=== PATIENT | female | born 1950 | race Caucasian/White ===

== ENCOUNTER → 2017-05-01 12:36 | Outpatient (CLI) | payer BC, SELFPAY ==
[2017-05-01 12:57] LABS: Blood Urea Nitrogen 20 mg/dL (7-18); Creatinine,Serum 0.86 mg/dL (0.55-1.02); Estimated Glomerular Filt Rate 66 ml/min (>60); GFR (African American) 80 ML/MIN (>60)
--- NOTE | 2017-05-01 13:00 | CT_ITS ---
CT chest wo/w con HISTORY: Pulmonary nodules follow-up abnormal CT ITS.REASON: PULMONARY NODULE ORDERING PHYSICIAN: Raimundo Robertson MD PATIENT AGE: 66 years TECHNIQUE: Axial images obtained without and with contrast. Sagittal and coronal reformatted images are also generated and reviewed. CONTRAST: 75ml Isovue 370 I.V. COMPARISON: None FINDINGS: There are coronary artery calcifications. A 12 mm isodense nodule present within the right lobe of the thyroid gland unchanged. No mediastinal or hilar mass is evident. There are scattered calcified granulomas. The previously noted subpleural opacity in the right lung base posterior laterally is unchanged measuring 6 mm. No abnormal enhancement. No new nodules are evident. No effusions or infiltrates. There is a small hiatal hernia. Mild cardiomegaly. No obvious pericardial effusion. Upper abdominal images show multiple hepatic cysts as before degenerative changes are present in the thoracic spine. IMPRESSION: 1. Overall stable CT appearance of the chest without and with contrast. Stable 6 mm subpleural nodule right lower lobe. Consider one-year follow-up to confirm 18 month stability. 2. Coronary artery disease. 3. No change thyroid nodule
--- NOTE | 2017-05-01 13:28 | HMH.ITSHM ---
VIT D,LISINOPRIL OMEPRAZOLE,HYDROCODONE
== END ==
PROVIDERS: PCP Family Medicine; Visit Provider Internal Medicine
DX: R91.8 Other nonspecific abnormal finding of lung field (principal)
CPT/HCPCS: 36415; 71270; 82565; 84520; Q9967

== ENCOUNTER → 2017-12-26 14:08 | Outpatient (CLI) | payer MEDICARE, OTHER, SELFPAY ==
--- NOTE | 2017-12-26 14:13 | CA_ITS ---
PROCEDURE: 2-D M-mode and color Doppler study INDICATIONS FOR THE TEST: Chest pain COPD Heart Murmur Tobacco Smoking Palpitations Fatigue Syncope Edema HypertensionXDiabetes Mellitus Rheumatic Fever SOB DOCKERY Obesity HyperlipidemiaX Family History HDX Additional History MVP PATIENT INFORMATION HEIGHT: 62 WEIGHT:205 GENDER: Female B/P:151/90 2-D/M-MODE INTERPRETATION: 2-D MEASUREMENTS OBSERVED VALUES IN CMS Right Ventricular Dimension (RVDd) 2.6 Interventricular Septum (Thickness)(IVsd) .9 Left Ventricular Internal Dimensions(LVIDd) 5.5 Left Ventricular Posterior Wall (Thickness)(LVPWd) .9 Aortic Root 3.1 Aortic Cusp Separation 2.0 Left Atrial Dimensions (LAD) 3.7 2D 1. Left atrium is normal size, left ventricle is normal size, left ventricle wall thickness is upper limit of the normal, there is preserved left ventricular systolic function, visually estimated ejection fraction of 55% with no regional wall motion abnormality. 2. The right atrium and right ventricle are normal size and contractility. 3. The aortic, mitral and tricuspid valve are grossly normal. 4. The pulmonic valve is poorly visualized. 5. No significant pericardial effusion noted. DOPPLER INTERROGATION: Doppler interrogation of the aortic, mitral and tricuspid valvular presence of mild mitral and tricuspid regurgitation, tricuspid regurgitation jet velocity is inadequate for calculation of the right ventricular systolic pressure, diastolic parameters are inconclusive. CONCLUSION: 1. Normal left ventricular size, preserved left ventricular systolic function, visually estimated ejection fraction 55% with no regional wall motion abnormality, diastolic parameters are inconclusive. 2. Mild mitral and tricuspid regurgitation 3. No significant pericardial effusion noted.
== END ==
PROVIDERS: PCP Family Medicine; Visit Provider Internal Medicine
DX: I34.1 Nonrheumatic mitral (valve) prolapse (principal); I25.10 Atherosclerotic heart disease of native coronary artery without angina pectoris
CPT/HCPCS: 93306

== ENCOUNTER → 2019-01-01 10:19 | Outpatient (CLI) | payer MEDICARE, OTHER, SELFPAY ==
--- NOTE | 2019-01-01 | CA_ITS ---
APPROVED REPORT Exam: Exercise Treadmill Technologist: Lucy Desir, Ht: 5 ft 2 in Wt: 197 lbs BSA: 1.90 m2 HR: 64 bpm BP: 136/74 mmHg Rhythm: NSR,NSST ABNORMALITIES INFERIORLY Medical History Medical History: HTN Medications: Omeprazole,,,,, Losartan,,,,, Vit D,,,,, [place],,,,, Cardiac Risk Factors: HTN, FHX of CAD Stress Test Details Test: Tai HR Resting HR: 75 bpm Max Heart Rate (APMHR): 154 bpm Max HR Achieved: 158 bpm Target HR (85% APMHR): 130 bpm % of APMHR: 102 Recovery HR: 106 bpm BP Resting BP: 136.0/74.0 mmHg Max BP: 182.0/82.0 mmHg Recovery BP: 157.0/84.0 mmHg ECG Clinical Reason for Termination: Dyspnea Exercise duration: 06:08 min Highest Stage Achieved: Exercise capacity: 7.0 METs Stress ECG Conclusion EXERCISED ONBRUCE PROTOCOL FOR 6:00 WITH A MAX HEART RATE 155 BPM WHICH IS 118% OF PM FOR AGE. METS = 7.0. TEST STOPPED DUE TO DOCKERY. NO CHEST PAIN BUT DID HAVE SOA. NO ARRHYTHMIAS/ECTOPY. 1.0-1.5MM ST SEGMENT DEPRESSION INFERO-LATERALLY(BASELINE EKG ABNORMAL). ABNORMAL. NON-DIAGNOSTIC. Test Summary REST . . . . . . . Standing REST . . . . . . . Sitting REST 15:07 0.0 0.0 75 . 136/ 74 . . Stage 1 01:00 10.0 1.7 100 . . . . Stage 1 02:00 10.0 1.7 117 . . . . Stage 1 03:00 10.0 1.7 125 . 164/ 82 . . Stage 2 01:00 12.0 2.5 139 . . . . Stage 2 02:00 12.0 2.5 149 . . . . Stage 2 . . . . . . . Cardiolite injected Stage 2 03:00 12.0 2.5 154 . 182/ 82 . . Stage 3 00:08 14.0 3.4 155 . . . Stop exercise at 06:08 RECOVERY 01:00 0.0 0.0 138 . . . . RECOVERY 02:00 0.0 0.0 116 . 157/ 84 . . RECOVERY 03:00 0.0 0.0 98 . 157/ 84 . . RECOVERY 04:00 0.0 0.0 91 . 157/ 84 . . RECOVERY 05:00 0.0 0.0 84 . 157/ 84 . . RECOVERY 05:57 0.0 0.0 76 . 143/ 66 . . Electronically signed by : Kt Espinoza, 01/02/2019 11:51:19
--- NOTE | 2019-01-01 11:21 | NM_ITS ---
APPROVED REPORT Exam: Nuclear Stress Test Indication: chest pain Patient Location: Outpatient Stress Tech: Hattie Amadornkson MS Tech:HOLLY Rangel RT(R)(N) Ht: 5 ft 2 in Wt: 197 lbs Bra Size: 38 dd HR: 64 bpm BP: 136/74 mmHg BSA: 1.90 m2 BMI: 36.0 History: chest pain Procedure: Patient exercised on Tai protocol 6 minutes and sec, resting heart rate 64 bpm, resting blood pressure 136/74 mmHg, with exercise maximum heart rate achived was 154 bpm which is Greater than 85 % of the maximum predicted heart rate and blood pressure was 182/82 mmHg. Patient denied any complaint of chest pain. Patient has Adequate exercise capacity, achieved 7.0 METs of workload on treadmill, the blood pressure response to exercise was Adequate. Electrocardiogram Sinus rhythm with nonspecific ST-T changes, with exercise there is additional 1.[address] segment depression noted from the baseline EKG. The EKG portion of the exercise Myoview is nondiagnostic due to baseline abnormal EKG. Cardiac Stress and Resting SPECT Images: Cardiac Stress and Resting SPECT images were obtained using technetium 99m Myoview 30.6 mCi stress and 10.60 mCi at rest. Gated SPECT with analysis of segmental wall motion and calculation of the ejection fraction also done. Cardiac stress and resting SPECT images show uniform myocardial activity without segmental perfusion abnormality, computer derived ejection fraction is over 65% with no regional wall motion abnormality, right ventricle is normal size and contractility. Conclusion: 1. The EKG portion of the exercise Myoview is nondiagnostic due to baseline abnormal EKG, patient has adequate exercise capacity achieved 7 mets of workload on treadmill the blood pressure response to exercise was adequate, there was no exercise-induced chest discomfort. 2. No scintigraphic evidence of reversible ischemia seen at this level of exercise, computer derived ejection fraction is over 65% with no regional wall motion abnormality, right ventricle is normal size and contractility. Electronically signed by : Kt Espinoza, 01/02/2019 11:54:57
--- NOTE | 2019-01-01 13:57 | HMH.ITSHM ---
Current Home Medications as stated by this patient Joanna Downey or passenger relations representative. [] norco omprazole losartan vit d
== END ==
PROVIDERS: PCP Family Medicine; Visit Provider Urology
DX: I10 Essential (primary) hypertension (principal); I20.9 Angina pectoris, unspecified
CPT/HCPCS: 78452; 93017; A9502

== ENCOUNTER → 2019-12-31 15:42 | Outpatient (CLI) | payer MEDICARE, SELFPAY ==
[2020-01-01 16:06] LABS: Alanine Aminotransferase 18 U/L (12-78); Albumin Level 4.3 g/dl (3.5-5.0); Alkaline Phosphatase 102 U/L (38-126); Anion Gap 14.9 mEq/L (5-15); Aspartate Amino Transferase 28 U/L (14-36); Bilirubin,Direct 0.2 mg/dl (0.0-0.4); Bilirubin,Indirect 0.3 mg/dL (0.0-0.9); Bilirubin,Total 0.5 mg/dl (0.2-1.3); Bilirubin,Unconjugated 0.4 mg/dL (0.0-1.1); Blood Urea Nitrogen 19 mg/dl (7-17); Calcium 10.6 mg/dl (8.4-10.2); Carbon Dioxide 27 mmol/L (22.0-30.0); Chloride 105 mmol/L (98-107); Chol/HDL Ratio 3.8 (1-3.5); Cholesterol 218 mg/dl (140-200); Estimated Glomerular Filt Rate 72 ml/min (>60); GFR (African American) 87 ML/MIN (>60); Glucose 101 mg/dl (74-100); HDL Cholesterol 57 mg/dl (40-60); Potassium 4.9 mmoL/L (3.5-5.1); Sodium 142 mmol/L (136-145); Triglycerides 146 mg/dl (30-150); VLDL Cholesterol 29 mg/dL (0-40)
[2020-01-01 16:17] LABS: Direct LDL Cholesterol 119.83 mg/dL (100-129)
== END ==
PROVIDERS: Visit Provider Urology
DX: E78.5 Hyperlipidemia, unspecified (principal); I25.10 Atherosclerotic heart disease of native coronary artery without angina pectoris; I11.9 Hypertensive heart disease without heart failure
CPT/HCPCS: 80048; 80061; 80076

== ENCOUNTER → 2020-07-21 07:30 | Outpatient (CLI) | payer MEDICARE, SELFPAY ==
[2020-07-21 08:45] LABS: Alanine Aminotransferase 17 U/L (12-78); Albumin Level 4.2 g/dl (3.5-5.0); Alkaline Phosphatase 67 U/L (38-126); Aspartate Amino Transferase 28 U/L (14-36); Bilirubin,Direct 0.4 mg/dl (0.0-0.4); Bilirubin,Indirect 0.3 mg/dL (0.0-0.9); Bilirubin,Total 0.7 mg/dl (0.2-1.3); Bilirubin,Unconjugated 0.4 mg/dL (0.0-1.1); Chol/HDL Ratio 2.7 (1-3.5); Cholesterol 125 mg/dl (140-200); HDL Cholesterol 47 mg/dl (40-60); Total Protein,Serum 7.3 g/dl (6.3-8.2); Triglycerides 110 mg/dl (30-150); VLDL Cholesterol 22 mg/dL (0-40)
== END ==
PROVIDERS: Visit Provider Nurse Practitioner Family
DX: E78.5 Hyperlipidemia, unspecified (principal); I10 Essential (primary) hypertension; I25.10 Atherosclerotic heart disease of native coronary artery without angina pectoris
CPT/HCPCS: 36415; 80061; 80076

== ENCOUNTER → 2021-07-05 10:30 | Outpatient (CLI) | payer MEDICARE, SELFPAY ==
[2021-07-05 11:49] LABS: Basophils # 0.1 K/mm3 (0-0.2); Eosinophils # 0.3 K/mm3 (0.0-0.4); Eosinophils % 4.2 % (0.1-12.0); Hematocrit 39.5 % (37.0-47.0); Hemoglobin 13.3 g/dL (12.2-16.2); Lymphocytes # 2.3 K/mm3 (0.7-4.5); Mean Corpuscular HGB Conc 33.6 g/dL (31.8-35.4); Mean Corpuscular Hemoglobin 31.9 pg (27.0-31.2); Mean Corpuscular Volume 94.8 fl (81-99); Mean Platelet Volume 8.8 fl (7.4-10.4); Monocytes # 0.5 K/mm3 (0.1-1.0); Monocytes % 7.9 % (1.7-9.3); Neutrophils # 2.9 K/mm3 (1.8-7.8); Neutrophils % 47.8 % (37.0-80.0); Platelet Count 303 K/mm3 (142-424); Red Blood Count 4.16 M/mm3 (4.20-5.40); Red Cell Distribution Width 13.9 % (11.5-17.5); White Blood Count 6.1 K/mm3 (4.8-10.8)
[2021-07-05 11:56] LABS: Alanine Aminotransferase 18 U/L (12-78); Alkaline Phosphatase 80 U/L (38-126); Aspartate Amino Transferase 26 U/L (14-36); Bilirubin,Direct 0.1 mg/dl (0.0-0.4); Bilirubin,Indirect 0.5 mg/dL (0.0-0.9); Bilirubin,Total 0.6 mg/dl (0.2-1.3); Bilirubin,Unconjugated 0.5 mg/dL (0.0-1.1); Blood Urea Nitrogen 24 mg/dl (7-17); Calcium 9.9 mg/dl (8.4-10.2); Carbon Dioxide 25 mmol/L (22.0-30.0); Chloride 106 mmol/L (98-107); Chol/HDL Ratio 3.7 (1-3.5); Cholesterol 199 mg/dl (140-200); Estimated Glomerular Filt Rate 71 ml/min (>60); GFR (African American) 86 ML/MIN (>60); Glucose 97 mg/dl (74-100); HDL Cholesterol 54 mg/dl (40-60); Sodium 140 mmol/L (136-145); Triglycerides 98 mg/dl (30-150); VLDL Cholesterol 20 mg/dL (0-40)
[2021-07-05 12:04] LABS: Anion Gap 13.5 mEq/L (5-15); Potassium 4.5 mmoL/L (3.5-5.1)
== END ==
PROVIDERS: PCP Family Medicine; Visit Provider Nurse Practitioner
DX: E11.9 Type 2 diabetes mellitus without complications (principal); E78.2 Mixed hyperlipidemia; I25.10 Atherosclerotic heart disease of native coronary artery without angina pectoris; I11.9 Hypertensive heart disease without heart failure; I63.9 Cerebral infarction, unspecified
CPT/HCPCS: 36415; 80048; 80061; 80076; 85025

== ENCOUNTER → 2021-08-01 07:05 | Outpatient (CLI) | payer MEDICARE, SELFPAY | PROVIDERS: PCP Family Medicine; Visit Provider Family Medicine | DX: N39.0 Urinary tract infection, site not specified (principal); B96.89 Other specified bacterial agents as the cause of diseases classified elsewhere | CPT/HCPCS: 87086; 87088; 87186 ==

== ENCOUNTER → 2022-05-11 14:29 | Outpatient (CLI) | payer MEDICARE, SELFPAY ==
[2022-05-11 13:40] LABS: Basophils # 0.1 K/mm3 (0-0.2); Eosinophils # 0.3 K/mm3 (0.0-0.4); Eosinophils % 3.9 % (0.1-12.0); Hematocrit 44.2 % (37.0-47.0); Hemoglobin 14.2 g/dL (12.2-16.2); Lymphocytes % 37.5 % (10-50); Mean Corpuscular HGB Conc 32.2 g/dL (31.8-35.4); Mean Corpuscular Hemoglobin 30.2 pg (27.0-31.2); Mean Corpuscular Volume 93.8 fl (81-99); Mean Platelet Volume 9.4 fl (7.4-10.4); Monocytes # 0.6 K/mm3 (0.1-1.0); Monocytes % 7.4 % (1.7-9.3); Neutrophils % 50.2 % (37.0-80.0); Platelet Count 383 K/mm3 (142-424); Red Blood Count 4.71 M/mm3 (4.20-5.40); Red Cell Distribution Width 13.6 % (11.5-17.5); White Blood Count 7.9 K/mm3 (4.8-10.8)
[2022-05-11 13:48] LABS: Alanine Aminotransferase 20 U/L (12-78); Albumin Level 4.4 g/dl (3.5-5.0); Albumin/Globulin Ratio 1.3 (1.1-1.8); Alkaline Phosphatase 93 U/L (38-126); Anion Gap 12.3 mEq/L (5-15); Aspartate Amino Transferase 25 U/L (14-36); Blood Urea Nitrogen 26 mg/dl (7-17); Calcium 9.6 mg/dl (8.4-10.2); Carbon Dioxide 28 mmol/L (22.0-30.0); Chloride 99 mmol/L (98-107); Estimated Glomerular Filt Rate 55 ml/min (>60); GFR (African American) 67 ML/MIN (>60); Globulin 3.4 g/dL (1.3-3.2); Glucose 81 mg/dl (74-100); Potassium 4.3 mmoL/L (3.5-5.1); Sodium 135 mmol/L (136-145); Total Protein,Serum 7.8 g/dl (6.3-8.2)
== END ==
PROVIDERS: PCP Family Medicine; Visit Provider Family Medicine
DX: E78.5 Hyperlipidemia, unspecified (principal); I34.1 Nonrheumatic mitral (valve) prolapse
CPT/HCPCS: 80053; 85025

== ENCOUNTER → 2022-07-10 09:22 | Outpatient (CLI) | payer MEDICARE, SELFPAY ==
[2022-07-10 11:08] LABS: Alanine Aminotransferase 19 U/L (12-78); Albumin Level 4.1 g/dl (3.5-5.0); Alkaline Phosphatase 89 U/L (38-126); Aspartate Amino Transferase 29 U/L (14-36); Bilirubin,Indirect 0.6 mg/dL (0.0-0.9); Bilirubin,Total 0.6 mg/dl (0.2-1.3); Bilirubin,Unconjugated 0.7 mg/dL (0.0-1.1); Chol/HDL Ratio 3.3 (1-3.5); Cholesterol 190 mg/dl (140-200); HDL Cholesterol 58 mg/dl (40-60); Total Protein,Serum 6.9 g/dl (6.3-8.2); Triglycerides 135 mg/dl (30-150); VLDL Cholesterol 27 mg/dL (0-40)
[2022-07-10 11:19] LABS: Direct LDL Cholesterol 99.79 mg/dL (100-129)
== END ==
PROVIDERS: PCP Family Medicine; Visit Provider Nurse Practitioner
DX: E78.2 Mixed hyperlipidemia (principal); I25.10 Atherosclerotic heart disease of native coronary artery without angina pectoris
CPT/HCPCS: 36415; 80061; 80076

== ENCOUNTER 2023-03-06 18:07 | Outpatient (CLI) | payer MEDICARE, SELFPAY ==
[2023-03-06 19:07] LABS: Basophils # 0.1 K/mm3 (0-0.2); Basophils % 1.2 % (0.1-2.0); Eosinophils # 0.4 K/mm3 (0.0-0.4); Eosinophils % 6.1 % (0.1-12.0); Hematocrit 41.9 % (37.0-47.0); Hemoglobin 13.5 g/dL (12.2-16.2); Lymphocytes # 2.4 K/mm3 (0.7-4.5); Lymphocytes % 34.5 % (10-50); Mean Corpuscular HGB Conc 32.3 g/dL (31.8-35.4); Mean Corpuscular Hemoglobin 31.4 pg (27.0-31.2); Mean Corpuscular Volume 97.2 fl (81-99); Mean Platelet Volume 10.1 fl (7.4-10.4); Monocytes # 0.5 K/mm3 (0.1-1.0); Monocytes % 6.9 % (1.7-9.3); Neutrophils # 3.6 K/mm3 (1.8-7.8); Neutrophils % 51.4 % (37.0-80.0); Platelet Count 275 K/mm3 (142-424); Red Blood Count 4.31 M/mm3 (4.20-5.40); Red Cell Distribution Width 13.4 % (11.5-17.5)
[2023-03-06 20:30] LABS: Chloride 103 mmol/L (98-107)
[2023-03-06 20:31] LABS: Potassium 4.3 mmoL/L (3.5-5.1); Sodium 141 mmol/L (136-145)
[2023-03-06 20:33] LABS: Alanine Aminotransferase 22 U/L (12-78); Aspartate Amino Transferase 31 U/L (14-36); Blood Urea Nitrogen 19 mg/dl (7-17); Estimated Glomerular Filt Rate 55 ml/min (>60); GFR (African American) 66 ML/MIN (>60)
[2023-03-06 20:34] LABS: Albumin Level 4.2 g/dl (3.5-5.0); Albumin/Globulin Ratio 1.4 (1.1-1.8); Alkaline Phosphatase 73 U/L (38-126); Anion Gap 11.3 mEq/L (5-15); Bilirubin,Total 0.4 mg/dl (0.2-1.3); Calcium 9.7 mg/dl (8.4-10.2); Carbon Dioxide 31 mmol/L (22.0-30.0); Chol/HDL Ratio 3.4 (1-3.5); Cholesterol 178 mg/dl (140-200); Globulin 3.1 g/dL (1.3-3.2); Glucose 99 mg/dl (74-100); HDL Cholesterol 52 mg/dl (40-60); Total Protein,Serum 7.3 g/dl (6.3-8.2); Triglycerides 107 mg/dl (30-150); VLDL Cholesterol 21 mg/dL (0-40)
[2023-03-06 20:45] LABS: Direct LDL Cholesterol 83.75 mg/dL (100-129)
[2023-03-06 21:05] LABS: Thyroid Stimulating Hormone 1.33 uIU/mL (0.465-4.68)
[2023-03-12 19:12] LABS: 1,25 Dihydroxy Vitamin D 46 pg/mL (.); 1,25-Dihydroxy, Vitamin D-2 <10 pg/mL (.); 1,25-Dihydroxy, Vitamin D-3 43 pg/mL (.)
== END 2023-03-06 23:59 ==
LOC: LAB.DROPOF 18:08
PROVIDERS: PCP Family Medicine; Visit Provider Family Medicine
DX: E78.5 Hyperlipidemia, unspecified (principal); I10 Essential (primary) hypertension; E66.9 Obesity, unspecified; Z68.34 Body mass index [BMI] 34.0-34.9, adult; Z79.899 Other long term (current) drug therapy
CPT/HCPCS: 80053; 80061; 82652; 84443; 85025

== ENCOUNTER 2023-07-03 11:43 | Outpatient (CLI) | payer MEDICARE, SELFPAY | END 2023-07-03 23:59 | disposition home or self-care (01) | LOC: LAB.DROPOF 07-05 11:45 | PROVIDERS: PCP Family Medicine; Visit Provider Family Medicine | DX: R30.0 Dysuria (principal); B96.29 Other Escherichia coli [E. coli] as the cause of diseases classified elsewhere; B95.2 Enterococcus as the cause of diseases classified elsewhere | CPT/HCPCS: 87086; 87088; 87186 ==

== ENCOUNTER 2024-01-24 12:31 | Outpatient (CLI) | payer MEDICARE, SELFPAY ==
--- NOTE | 2024-01-24 12:34 | CA_ITS ---
APPROVED REPORT EXAM: Comprehensive 2D, Doppler, and color-flow Echocardiogram Thermoscrew Operator: Cydney Moses RVT Ht: 5 ft 2 in Wt: 197lbs BSA: 1.90 BP: 141/70 mmHg Indications: EDEMA,MVP,HTN,HLD 2D Dimensions IVSd 1.25 cm F: 0.6-1.0 LVEF (Visual) 55.20 % PWd 0.99 cm F: 0.6 - 1.0 LA Volume 33.50 mL LVDd 4.25 cm F: 3.9 - 5.3 LA Volume Index 17.63 mL/m2 (M/F) 16-34 LVDs 3.04 cm F: 2.2 - 3.5 M-Mode Dimensions RVDd 2.65 cm (0.9-2.6) LA Diam 3.85 cm (1.9-4.0) LVDd 5.17 cm (3.5-5.7) LVDs 2.97 cm (3.5-5.7) IVSd 0.76 cm (0.6-1.1) PWd 0.80 cm (0.6-1.1) EF (Teich) 73.20% FS 42.60% EDV (Teich) 127.80 mL ESV (Teich) 34.20 mL LV Diastology E Decel Time 150 (160-240 msec) E/A Ratio 0.9 Aortic Valve EL Index 1.43 cm2/m2 AoV Peak Willy. 100.0 (50-130 cm/s) AO Peak GR. 4.00 mmHg AO Mean GR. 2.10 (<5 mmHg) AO VTI 19.6 (18-25 cm) EL (VTI) 2.78 (2.5-4.5 cm2) Mitral Valve MV E Max Willy. 60.0 (40-130 cm/s) MV A Velocity 67.0 (40-130 cm/s) E/A Ratio 0.89 MV PHT 44.0 ms Pulmonary Valve PV Peak Velocity 85.0 (50-150 cm/s) Tricuspid Valve TR P. Velocity 275.00 cm/s RAP Estimate 10.00 mmHg RVSP 40.20 mmHg Left Ventricle The left ventricle is normal size. The left ventricular systolic function is normal. The left ventricular ejection fraction is within the normal range. There is normal left ventricular wall thickness. There is normal LV segmental wall motion. The left ventricular diastolic function is normal. LVEF is 55%. Right Ventricle The right ventricle is normal size. The right ventricular systolic function is normal. Atria The left atrium size is normal. The right atrium size is normal. There is no Doppler evidence of interatrial shunt. Aortic Valve The aortic valve opens well. There is no aortic valvular stenosis. No aortic regurgitation is present. Mitral Valve Borderline bileaflet prolapse is likely present. No evidence of mitral valve stenosis. Trace mitral regurgitation. Tricuspid Valve Tricuspid valve is grossly normal in structure and function. Mild tricuspid regurgitation. RVSP is 20-25 mmHg. Pulmonic Valve The pulmonary valve is normal in structure. Trace pulmonic regurgitation. Great Vessels The aortic root is normal in size. The ascending aorta is normal in size. IVC is normal in size and collapses >50% with inspiration. Pericardium There is no pericardial effusion. Other Information Study Quality: Fair Conclusion Normal biventricular systolic function. Borderline bileaflet MV prolapse. No significant MR. Electronically signed by : Katalina Torre MD 02/03/2024 00:30:28
== END 2024-01-24 23:59 | disposition home or self-care (01) ==
LOC: RT 12:31
PROVIDERS: PCP Family Medicine; Visit Provider Physician Assistant
DX: I34.1 Nonrheumatic mitral (valve) prolapse (principal); I25.10 Atherosclerotic heart disease of native coronary artery without angina pectoris
CPT/HCPCS: 93306

== ENCOUNTER 2024-07-29 09:08 | Outpatient (CLI) | payer MEDICARE, SELFPAY ==
[2024-07-29 09:28] LABS: Basophils # 0.1 K/mm3 (0-0.2); Basophils % 1.4 % (0.1-2.0); Eosinophils # 0.3 Kmm3 (0.0-0.4); Eosinophils % 5.7 % (0.1-12.0); Hematocrit 34.8 % (37.0-47.0); Hemoglobin 11.8 g/dL (12.2-16.2); Immature Granulocytes # 0.03 10^3uL; Immature Granulocytes % 0.5 %; Lymphocytes # 2.2 K/mm3 (0.7-4.5); Lymphocytes % 37.5 % (10-50); Mean Corpuscular HGB Conc 33.9 g/dL (31.8-35.4); Mean Corpuscular Hemoglobin 30.4 pg (27.0-31.2); Mean Corpuscular Volume 89.7 fl (81-99); Mean Platelet Volume 10.6 fl (7.4-10.4); Monocytes # 0.7 K/mm3 (0.1-1.0); Monocytes % 12.1 % (1.7-9.3); Neutrophils # 2.5 K/mm3 (1.8-7.8); Neutrophils % 42.8 % (37.0-80.0); Nucleated Red Blood Cells # 0 10^3/uL; Nucleated Red Blood Cells % 0 %; Platelet Count 306 K/mm3 (142-424); Red Blood Count 3.88 M/mm3 (4.20-5.40); Red Cell Distribution Width 13.9 % (11.5-17.5); Red Cell Distribution Width-SD 45.5 fL; White Blood Count 5.8 K/mm3 (4.8-10.8)
[2024-07-29 09:44] LABS: Chloride 105 mmol/L (98-107); Sodium 140 mmol/L (136-145)
[2024-07-29 09:46] LABS: Alanine Aminotransferase 15 U/L (12-78); Aspartate Amino Transferase 23 U/L (14-36); Bilirubin,Unconjugated 0.2 mg/dL (0.0-1.1); Blood Urea Nitrogen 22 mg/dl (7-17); Carbon Dioxide 28 mmol/L (22.0-30.0); Estimated Glomerular Filt Rate 40 ml/min (>60); GFR (African American) 49 ML/MIN (>60); Total Protein,Serum 7.1 g/dl (6.3-8.2)
[2024-07-29 09:47] LABS: Alkaline Phosphatase 95 U/L (38-126); Bilirubin,Direct 0.1 mg/dl (0.0-0.4); Bilirubin,Indirect 0.2 mg/dL (0.0-0.9); Bilirubin,Total 0.3 mg/dl (0.2-1.3); Calcium 9.6 mg/dl (8.4-10.2); Chol/HDL Ratio 3.8 (1-3.5); Cholesterol 158 mg/dl (140-200); Glucose 103 mg/dl (74-100); HDL Cholesterol 42 mg/dl (40-60); Magnesium 2.1 mg/dl (1.6-2.3); Triglycerides 153 mg/dl (30-150); VLDL Cholesterol 31 mg/dL (0-40)
[2024-07-29 09:58] LABS: Direct LDL Cholesterol 62.92 mg/dL (100-129)
[2024-07-29 10:05] LABS: Free T4 (Free Thyroxine) 1.42 ng/dl (0.78-2.19)
[2024-07-29 10:20] LABS: Thyroid Stimulating Hormone 0.83 uIU/mL (0.465-4.68)
== END 2024-07-29 23:59 | disposition home or self-care (01) ==
LOC: LAB 09:09
PROVIDERS: PCP Family Medicine; Visit Provider Physician Assistant
DX: I25.10 Atherosclerotic heart disease of native coronary artery without angina pectoris (principal); I10 Essential (primary) hypertension; E78.5 Hyperlipidemia, unspecified
CPT/HCPCS: 36415; 80048; 80061; 80076; 83735; 84439; 84443; 85025

== ENCOUNTER 2025-02-15 08:41 | Outpatient (CLI) | payer MEDICARE, SELFPAY ==
--- OUTSIDE RECORDS SUMMARY | 2025-02-15 08:44 | XMS_ITS | Clinical Summary ---
[facility] Organization [facility] Address [address] [place] [address] Care Team Providers Care Attorney At Law Name Role Phone Alejandro Kasper MD Primary Care Provider Family History Medical History Relation Name Comments Breast cancer Maternal Grandmother age of onset unknown Breast cancer Other niece Breast cancer Sister 1 60's Breast cancer Sister 2 60's Ovarian cancer Neg Hx Relation Name Status Comments Maternal Grandmother Other niece Sister 1 Alive Sister 2 Alive Social History Tobacco Use Types Packs/Day Years Used Date Smoking Tobacco: Never Assessed Comments No Sex and Gender Information Value Date Recorded Sex Assigned at Not on file Legal Sex Female 12:40 PM EDT Gender Identity Not on file Sexual Orientation Not on file Plan of Treatment Health Maintenance Due Date Last Done Comments ANNUAL PHYSICAL 1950 DXA SCAN 1950 HEPATITIS C SCREENING 1950 COLOGUARD 1997 COLON CANCER SCREENING 5 YEA R SIGMOIDOSCOPY 1997 COLONOSCOPY 1997 [address] CANCER SCREENING 1997 CT COLONOGRAPHY 1997 FECAL OCCULT BLOOD TEST 1997 FIT Testing (1 year) 1997 ZOSTER VACCINE (1 of 2) 2002 Pneumococcal Vaccine 50+ (2 of 2 - PCV) 11/10/2017 11/10/2016 TDAP/TD VACCINES (2 - Td or Tdap) 12/27/2019 010 INFLUENZA VACCINE 09/25/2024 11/14/2023, , 11/28/2019, Additional history exists COVID-19 Vaccine (2023-03 5 season) 2024 12/04/2023, 12/27/2021, 09/27/2021, Additional history exists MAMMOGRAM 03/26/2026 03/26/2024, 02/26, 03/22/2022, Additional history exists Procedures Procedure Name Priority Date/Time Associated Diagnosis Comments MAMMO SCREENING DIGITAL TOMOSYNTHESIS BILATERAL W CAD Routine 03/26/2024 11:09 AM EST Visit for screening mammogram from Last 3 Months or Most Recently Relevant to Health Maintenance Results * Mammo Screening Digital Tomosynthesis Bilateral With CAD (03/26/2024 11:09 AM EST) Anatomical Region Laterality Modality Breast N/A Mammography 03/26/2024 3:23 PM EST Impressions 03/26/2024 3:25 PM EST Benign screening mammogram. RECOMMENDATION: Continue annual screening mammography. BI-RADS CATEGORY 2, BENIGN. CAD was utilized. The standard false-negative rate of mammography is between 10% and 25%. Complex patterns or increased breast density will markedly elevate the false-negative rate of mammography. A letter, in lay terminology, with the results of this exam will be mailed to the patient. This report was finalized on 03/26/2024 3:[address] Rodrigo Marin MD. Narrative 03/26/2024 3:25 PM EST DIGITAL SCREENING MAMMOGRAM WITH TOMOSYNTHESIS HISTORY: Screening Mammography. Low dose full field digital breast tomosynthesis imaging was performed with 2D and 3D acquisitions consisting of bilateral CC and MLO views. Examination is compared to prior examination dating back to 07/01/2014. Examination is read in conjunction with computer aided detection. FINDINGS: There are scattered areas of fibroglandular density. No suspicious masses, microcalcifications or areas of architectural distortion are identified. Bilateral benign-appearing calcifications in the left breast biopsy tissue marker are stable. Alejandro Kasper MD IMG MAMMOGRAPHY ORDERABLES Final Result from Last 3 Months or Most Recently Relevant to Health Maintenance Insurance [employer] PPO MEDICARE A & B Care Teams Attorney At Law Relationship Specialty Start Date End Date Alejandro Kasper MD [address] [place] [address] PCP - General Family Medicine 07/17/15
--- OUTSIDE RECORDS SUMMARY | 2025-02-15 08:44 | XMS_ITS | Clinical Summary ---
Author Organization [facility] Address [address] [place] [address] Phone Care Team Providers Care Race Engine Builder Name Role Phone Alejandro Kasper MD Primary Care Provider [phone] Allergies Active Allergy Reactions Criticality Noted Date Comments Atorvastatin Other (See Comments) 05/22/2022 Pt not sure Lisinopril Cough 05/22/2022 Penicillins Nausea Only 05/22/2022 Oxycodone-Acetaminophen Other (See Comments) Hallucinations Medications losartan (COZAAR) 50 mg Oral Tablet Take by mouth daily. Active calcium carbonate/vitam in D3 (VITAMIN D-3 ORAL) Take by mouth. Activ e estradioL (ESTRACE) 0.01 % (0.1 mg/gram) Vagl CreamIndication s:Vaginal atrophy INSERT 1 GRAM VAGINALLY DAILY 42.5 g 1 2 Active Additional Information Patient not taking.Reason: Pt electing to not take the medication, Reported on 05/22/2022 cephALEXin (KEFLEX) 250 mg Oral CapsuleIndicati ons:Acute UTI Take 1 Capsule by mouth daily. 30 Capsule 5 2 Active Additional Information Patient not taking.Reason: Therapy Completed, Reported on 05/22/2022 conjugated estrogens (PREMARIN) Vagl CreamIndication s:Vaginal atrophy Apply pea-sized amount using fingertip into the vagina (or as instructed) nightly x 2 weeks, then use 2-3 x per week. 30 g 1 3 Active Additional Information Patient not taking.Reason: Pt electing to not take the medication, Reported on 05/22/2022 losartan-hydroc hlorothiazide (HYZAAR) 50-12.5 mg Oral Tablet Take 1 Tablet by mouth daily. Active omeprazole (PRILOSEC) 40 mg Oral Capsule, Delayed Release(E.C.) Take 40 mg by mouth daily. Active HYDROcodone-luis alberto taminophen (NORCO) 7.5-325 mg Oral Tablet Take 1 Tablet by mouth every 4 hours as needed for Acute Pain (R52). 20 Tablet 3 Active docusate sodium (COLACE) 100 mg Oral Capsule Take 1 Capsule by mouth 2 times daily. 60 Capsule 2 3 Active ibuprofen (ADVIL;MOTRIN) 600 mg Oral Tablet Take 1 Tablet by mouth every 6 hours as needed for Pain. 60 Tablet 1 3 Active ondansetron (ZOFRAN-ODT) 4 mg Oral Tablet, Rapid Dissolve Take 1 Tablet by mouth every 6 hours as needed for Nausea. 30 Tablet 3 Active senna (SENOKOT) 8.6 mg Oral Tablet Take 1 Tablet by mouth daily as needed for Constipation. 30 Tablet 1 3 Active Active Problems Problem Noted Date Diagnosed Date Female cystocele 08/16/2021 Uterovaginal prolapse, incomplete 08/16/2021 Pelvic floor dysfunction in female 08/16/2021 Mixed stress and urge urinary incontinence 08/16 Surgical History Surgery Date Site/Laterality Comments CHOLECYSTECTOMY TUBAL LIGATION CHOLECYSTECTOMY NECK SURGERY APPENDECTOMY COLONOSCOPY UPPER GASTROINTESTINAL ENDOSCOPY AR COLPOCLEISIS LE FORT TYPE 05/24/2022 N/A Lefort Colpocleisis, levatorplasty, posterior repair, cystoscopy, partial colpectomy; Surgeon: Indira Juárez MD; Location: [facility] MAIN OR; Service: Gynecology RECTOCELE REPAIR 05/24/2022 N/A Surgeon: Indira Juárez MD; Location: [facility] MAIN OR; Service: Gynecology Medical History Medical History Date Comments Hypertension Urinary incontinence Hyperlipidemia no meds Heartburn Hiatal hernia Arthritis hands Headache Urinary tract infection 2 months ago Post-operative nausea and vomiting Family History Medical History Relation Name Comments Anesth Problems Neg Hx Social History Tobacco Use Types Packs/Day Years Used Date Smoking Tobacco: Never Smokeless Tobacco: Never Tobacco Cessation:Counseling Given: Not Answered Alcohol Use Standard Drinks/Week Comments Never 0 (1 standard drink = 0.6 oz pur e alcohol) Comments No Sex and Gender Information Value Date Recorded Sex Assigned at Not on file Legal Sex Female 3:31 PM EST Gender Identity Not on file Sexual Orientation Not on file Last Filed Vital Signs Vital Sign Reading Time Taken Comments Blood Pressure 149/79 05/24/2022 11:51 AM EDT Pulse 76 01/07/2023 9:27 AM EST Temperature 36.2 C (97.2 F) 05/24/2022 11:51 AM EDT Respiratory Rate 20 05/24/2022 11:51 AM EDT Oxygen Saturation 98% 01/07/2023 9:27 AM EST Inhaled Oxygen Concentration - - Weight 84.4 kg (186 lb) 01/07/2023 9:27 AM EST Height 157.5 cm (5' 2 ) 05/24/2022 6:21 AM EDT Body Mass Index 34.02 05/24/2022 6:21 AM EDT Plan of Treatment Health Maintenance Due Date Last Done Comments Wellness Exam Medicare 10/06/1953 Hepatitis C Screening 1970 Cologuard 1997 Colon Cancer Screening 1997 Colonoscopy 1997 FIT 1997 Sigmoidoscopy 1997 Virtual Colonography 1997 Zoster (1 of 2) 2002 Bone Density Screening 2017 Pneumococcal Vaccine 50+ (2 of 2 - PCV) 11/10/2017 11/10/2016 DTaP/TDaP/Td (2 - Td or Tdap) 12/27/2019 12/26/2009 Breast Cancer Screening 03/22/2024 03/22/19 23, 03/22/2022, 01/31/2021, Additional history exists COVID-19 Vaccine ( season) 2024 12/27/2021, 09/27/2021, 03/01/2021, Additional history exists Influenza Vaccine (#1) 2024 , 11/28/2019, 11/10/2016, Additional history exists Hepatitis B Vaccine Aged Out No longe r eligible based on patient's age to complete this topic Meningococcal B Vaccine Aged Out No l onger eligible based on patient's age to complete this topic Medical Devices Implanted Type Area Branch Office Manager Device Identifier Shelf Expiration Date Model / Serial / Lot Breast Marker Left: Breast Insurance [employer] MEDICARE PPO MR [employer] MEDICARE PPO MR Care Teams Race Engine Builder Relationship Specialty Start Date End Date Alejandro Kasper MD PCP - General Family Medicine 03/16/16
[2025-02-15 08:59] VITALS: BMI 36.0
[2025-02-15 09:19] VITALS: BP 125/73; PULSE 68; RESP 18; TEMP 36.7; O2SAT 98
[2025-02-15 09:30] LABS: Chloride 104 mmol/L (98-107); Potassium 3.5 mmoL/L (3.5-5.1); Sodium 136 mmol/L (136-145)
[2025-02-15 09:33] LABS: Anion Gap 8.5 mEq/L (5-15); Blood Urea Nitrogen 17 mg/dl (7-17); Calcium 10.2 mg/dl (8.4-10.2); Carbon Dioxide 27 mmol/L (22.0-30.0); Creatinine Clearance Estimated 72 mL/min (50-200); Creatinine,Serum 1.00 mg/dl (0.52-1.04); Estimated Glomerular Filt Rate 55 ml/min (>60); GFR (African American) 66 ML/MIN (>60); Glucose 104 mg/dl (74-100)
--- NOTE | 2025-02-15 10:00 | CT_ITS ---
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 A noncontrast coronary calcium scan was performed. A CT attenuation threshold of 130 Hounsfield units (HU) was used for the detection of calcium in contiguous voxels of 1 sq mm in area to be counted as individual lesions. Bolus tracking in the ascending aorta with a threshold of 180 HU was performed. Immediately afterwards, ECG synchronized cardiac CT was then performed from the cardiac base to apex using retrospective gating with ECG tube current modulation. A total of 85 mL of Isovue 370 mg/mL contrast medium was administered at 5 mL/sec followed by a saline flush using a biphasic injection protocol. A tube voltage of 120 KVp was used. The patient received the following medications prior to the cardiac CT. 0.4 mg of sublingual nitroglycerin The average heart rate at the time of acquisition was 63 bpm and regular. Image Reconstruction Transaxial images were reconstructed at 0.67 mm slide thickness. Data was reviewed interactively on an advanced workstation capable of 2 and 3-dimensional displays in all conventional reconstruction formats, including multiplanar reformations, maximum intensity projections, curved multiplanar reformations, and volume rendered reconstructions. When applicable, selected routine images describing the relevant coronary anatomy and pathology were saved and sent to PACS. Complications None Technical Quality Overall image quality was good. Coronary artery opacification was adequate. Total DLP (Dose-Length Product) is 1728.3 mGy-cm. The reported value represents the total of one or more individual components during the CT acquisition of this date and at this time, and as such, the same value may appear in more than one CT report depending on the interpreting/reporting physicians. COMPARISON None FINDINGS CT Coronary Calcium Scoring LMA (Left Main Artery) = 98 LAD (Left Anterior Descending) = 282 LCX (Left Coronary Circumflex) = 144 RCA (Right Coronary Artery) = 120 Total Calcium Score = 644 using the AJ-130 method. The observed calcium score of 644 is at 92nd percentile for subjects of the same age, sex, and race/ethnicity. The interpretation of the calcium heart score is based on the following continuum*: 0 = no calcified plaque detected (risk of coronary artery disease is very low ??? less than 5%) 1-10 = calcium detected in extremely minimal levels (risk of coronary diseases is still low ??? less than 10%) 11-100 = mild levels of plaque detected with certainty (mild or minimal narrowing of heart arteries is likely) 101-400 = definite,at least moderate levels of plaque detected (relatively high risk of a heart attack within 3-5 years) >401-999 = extensive levels of plaque detected (high risk of heart attack, high levels of vascular disease are present, high likelihood of at least one significant coronary narrowing) *The calcium heart score quantifies the burden of coronary calcification/plaque in the coronary arteries. The calcium heart score is not able to evaluate the presence or burden of non-calcified (i.e. soft) plaque. There is also calcification in the ascending and descending thoracic aorta. Coronary CT Angiography The coronary arterial system is right dominant. Quantitative Stenosis Grading: Left Main (LM): The left main originates normally from the left sinus of Valsalva. The LM bifurcates into the left anterior descending artery and left circumflex artery. The LM is patent with no evidence of atherosclerosis. Left Anterior Descending (LAD) and Diagonal Branches: The LAD gives off 2 diagonal branch(es). There is mixed calcified/non-calcified plaque in the proximal and mid LAD segments, with up to 50-70% luminal stenosis. There is no evidence of LAD-myocardial bridge. Left Circumflex (LCX) and Obtuse Marginals (OM): The LCX gives off 2 Obtuse Marginal (OM) branch(es). There is mixed calcified/non-calcified plaque in the proximal LCX segment, with up to 25-49% luminal stenosis. Right Coronary Artery (RCA): The RCA originates normally from the right sinus of Valsalva. The RCA gives off a posterior descending artery (PDA) and posterolateral (PL) branches. There is mixed calcified/non-calcified plaque in the proximal RCA segment, with up to 25-49% luminal stenosis. Non-Coronary Cardiac Findings: Analysis of the left ventricular (LV) structure and function was performed after 3-D reconstruction of the LV from axial images, with user-corrected automatic contouring for assessment of LV volumes and user-defined reconstruction from oblique planes for measurement of 3-D cardiac structure and function. -The left ventricle systolic function is normal. -There is no left atrial appendage filling defect. Two right pulmonary veins and two left pulmonary veins drain normally into the left atrium. -No pericardial thickening or calcification. -Central and branch pulmonary arteries in the [id number] are unremarkable. -Thoracic aorta within the visualized thoracic aortic-branches in the [id number] is unremarkable. Extracardiac Structures No significant extra-cardiac findings. Note, however, that this study is focused on the cardiac findings. IMPRESSION -Presence of coronary calcification with an Agatston score = 644 using the AJ-130 method. -The observed calcium score of 644 is at 92nd percentile for subjects of the same age, sex, and race/ethnicity. -Multivessel atherosclerotic coronary disease, with possible evidence of significant flow-limiting atherosclerosis of the LAD segment. -CAD-RADS 3. Management recommendations per ACC/AHA guidelines*, as clinically appropriate. *Recommendations: CAD RADS 0: Reassurance. Consider non-atherosclerotic causes of chest pain. CAD RADS 1: Consider non-atherosclerotic causes of chest pain. Consider preventive therapy and risk factor modification. CAD RADS 2: Consider non-atherosclerotic causes of chest pain. Consider preventive therapy and risk factor modification, particularly for patients with nonobstructive plaque in multiple segments. CAD RADS 3: Consider further functional testing. Consider symptom-guided anti-ischemic and preventive pharmacotherapy as well as risk factor modification per published guideline statements. CAD RADS 4A: Consider further functional testing or invasive coronary angiography with revascularization per published guideline statements. Consider symptom-guided anti-ischemic and preventive pharmacotherapy as well as risk factor modification per published guideline statements. CAD RADS 4B: Invasive coronary angiography recommended with revascularization per published guideline statements. Consider symptom-guided anti-ischemic and preventive pharmacotherapy as well as risk factor modification per published guideline statements. CAD RADS 5: Consider invasive angiography and/or viability assessment with revascularization per published guideline statements. Consider symptom-guided anti-ischemic and preventive pharmacotherapy as well as risk factor modification per published guideline statements. CRITICAL RESULT None COMMUNICATION Per this written report The coronary and cardiac findings of this CCTA were reviewed, reported, and signed by Brennan Torre MD ([employer]) Conclusion Electronically signed by : Katalina Torre MD 02/21/2025 18:48:17
[2025-02-15 10:06] VITALS: BP 150/92; PULSE 66; RESP 18; TEMP 36.7; O2SAT 98
[2025-02-15 10:11] VITALS: BP 154/89; PULSE 71; RESP 18; TEMP 36.7; O2SAT 99
[2025-02-15 10:20] VITALS: BP 110/68; PULSE 63; RESP 18; TEMP 36.7; O2SAT 99
--- NOTE | 2025-02-15 11:00 | CA_ITS ---
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 RT(R) Ht: 5 ft 3 in Wt: 193lbs BSA: 1.90 BP: 125/71 mmHg Indications: CAD, hyperlipdemia, hypertension, pulmonary nodule 2D Dimensions Left Atrium 3.41 cm F: 2.7 - 3.8 LVEF (Finch's) 55.90 % F: 54 - 74 LVOT 1.82 cm (M/F) 1.5-2.5 LV Volume 73.50 mL F: 46 - 106 LV Volume Index 38.5 mL/m2 F: 29 - 61 LA Volume 15.50 mL LA Volume Index 8.12 mL/m2 (M/F) 16-34 EF AP4 55.40 % EF AP2 53.4 % EF BP 55.9 % GL Strain -21.8 % M-Mode Dimensions RVDd 2.97 cm (0.9-2.6) LVDd 4.47 cm (3.5-5.7) Ao Diam 2.80 cm (2.0-3.7) LVDs 2.79 cm (3.5-5.7) IVSd 0.93 cm (0.6-1.1) PWd 0.93 cm (0.6-1.1) EF (Teich) 67.80% FS 37.60% EDV (Teich) 91.00 mL ESV (Teich) 29.30 mL LV Diastology E Decel Time 289 (160-240 msec) E/A Ratio 1.1 MED E' 7.8 (>= 7 cm/sec) E'/MED E' Ratio 7.58 (<= 14) LAT E' 8.7 (>= 10 cm/sec) E/LAT E' Ratio 6.79 (<= 14) Mitral Valve MV E Max Willy. 59.0 (40-130 cm/s) MV A Velocity 54.0 (40-130 cm/s) E/A Ratio 1.10 MV Decel. Time 289 (160-240 ms) Left Ventricle The left ventricle is normal size. Left ventricular systolic function is normal. The left ventricular ejection fraction is within the normal range. There is increased left ventricular wall thickness. There is normal LV segmental wall motion. The left ventricular diastolic function is normal. LVEF is 55%. Right Ventricle The right ventricle is normal size. The right ventricular systolic function is normal. Atria The left atrium size is normal. The right atrium size is normal. There is no color Doppler evidence of interatrial shunt. Aortic Valve The aortic valve is mildly thickened. There is no hemodynamically significant aortic valvular stenosis. No aortic regurgitation is present. Mitral Valve The mitral valve is normal in structure. No evidence of mitral valve stenosis. Trace mitral regurgitation is present. Tricuspid Valve The tricuspid valve leaflets are thin and pliable. Trace tricuspid regurgitation. There is insufficient TR jet to estimate RVSP. Pulmonic Valve The pulmonary valve is grossly normal in structure. Trace pulmonic valve regurgitation is present. Great Vessels The aortic root is normal in size. IVC is normal in size and collapses >50% with inspiration. Pericardium There is no pericardial effusion. There is a large, well-circumscribed, round, anechoic hepatic echodensity present, measuring 6.0 in dimameter. This likely represents a hepatic cyst. Other Information Study Quality: Fair Conclusion Normal biventricular systolic function. No significant valvular stenosis or regurgitation. Large, well-circumscribed, round, anechoic hepatic echodensity present, measuring 6.0 in dimameter. This likely represents a hepatic cyst. Correlation with new or recent abdominal imaging is suggested. Electronically signed by : Katalina Torre MD 02/25/2025 13:43:44
[2025-02-15] MEDS: 0.9 % SODIUM CHLORIDE 50 ML VIAL IV (11:17)
[2025-02-15] MEDS: SODIUM CHLORIDE 0.9% 10ML SYR (RAD ONLY) 10 ML IV (11:17)
[2025-02-15] MEDS: IOPAMIDOL-370 (76%);100ML BOTTLE 85 ML IV (11:17)
== END 2025-02-15 10:37 | disposition home or self-care (01) ==
PROVIDERS: PCP Family Medicine; Visit Provider Physician Assistant
DX: I25.10 Atherosclerotic heart disease of native coronary artery without angina pectoris (principal); E78.2 Mixed hyperlipidemia; I10 Essential (primary) hypertension; I34.1 Nonrheumatic mitral (valve) prolapse; E86.0 Dehydration; R91.1 Solitary pulmonary nodule; R93.1 Abnormal findings on diagnostic imaging of heart and coronary circulation
CPT/HCPCS: 75574; 80048; 93306; Q9967